=== PATIENT | female | born 1995 | race Caucasian/White ===

== ENCOUNTER 2017-08-01 17:39 | Emergency (ER) | payer SELFPAY ==
[~2017-08-01] VITALS: Ht 167.6 cm; Wt 112.6 kg
[~2017-08-01 17:39] MED LIST: ACET-66 PO; AMOX250C4 PO
[2017-08-01] MEDS ORDERED: KETOROLAC TROMETHAMINE 30 MG/ML VIAL IM ONE (19:30)
[2017-08-01 20:03] LABS: APPEARANCE,URINE CLEAR (CLEAR); GLUCOSE, URINE (UA) NEGATIVE (NEGATIVE); KETONES,URINE 15 mg/dL (NEGATIVE); LEUKOCYTE ESTERASE ,URINE NEGATIVE (NEGATIVE); OCCULT BLOOD,URINE NEGATIVE (NEGATIVE); PROTEIN,URINE POS 1+ (NEGATIVE)
[2017-08-01 20:05] VITALS: BP 122/72
[2017-08-01 20:07] LABS: ADD UA MICROSCOPIC YES
[2017-08-01 20:25] LABS: RBC,URINE 0-2 /HPF (0-2); SQUAMOUS EPITHELIAL CELL,UR Few /LPF (None Seen); WBC,URINE None Seen /HPF (0-5)
== END 2017-08-01 20:29 | disposition home or self-care (01) ==
LOC: EMS 17:40
DX: S39.012A Strain of muscle, fascia and tendon of lower back, initial encounter (principal); Z88.0 Allergy status to penicillin; X58.XXXA Exposure to other specified factors, initial encounter; Y93.89 Activity, other specified; Y92.89 Other specified places as the place of occurrence of the external cause; Y99.8 Other external cause status
CPT/HCPCS: 81001; 81025; 96372; 99283; J1885

== ENCOUNTER 2018-06-17 18:42 | Emergency (ER) | payer OTHER ==
[~2018-06-17] VITALS: Ht 170.2 cm; Wt 107.3 kg
[2018-06-17] MEDS ORDERED: METHOCARBAMOL 500 MG TABLET PO ONE (19:45)
[2018-06-17] MEDS ORDERED: IBUPROFEN 800 MG TABLET PO ONE (19:45)
[2018-06-17] MEDS ORDERED: PERTUSS(ACELL),DIPH,TET VAC/PF 0.5 ML VIAL IM ONE (19:45)
[2018-06-17 20:49] VITALS: BP 129/79
== END 2018-06-17 20:50 | disposition home or self-care (01) ==
LOC: EMS 18:42
DX: S80.812A Abrasion, left lower leg, initial encounter (principal); M25.511 Pain in right shoulder; R03.0 Elevated blood-pressure reading, without diagnosis of hypertension; Z88.0 Allergy status to penicillin; V49.50XA Passenger injured in collision with unspecified motor vehicles in traffic accident, initial encounter; Y93.89 Activity, other specified; Y92.89 Other specified places as the place of occurrence of the external cause; Y99.8 Other external cause status
CPT/HCPCS: 90471; 90715; 96372

== ENCOUNTER 2024-05-01 18:57 | Emergency (ER) | payer OTHER ==
[~2024-05-01] VITALS: Ht 170.2 cm; Wt 129.6 kg
[2024-05-01] MEDS: ACETAMINOPHEN 500 MG TABLET PO ONE (22:24)
[2024-05-01] MEDS: IBUPROFEN 600 MG TABLET PO ONE (22:24)
[2024-05-01 22:35] VITALS: BP 120/70; PULSE 76; RESP 16; TEMP 98.1; O2SAT 100
== END 2024-05-01 23:01 | disposition home or self-care (01) ==
LOC: EMS 18:59
DX: M23.92 Unspecified internal derangement of left knee (principal); Z88.0 Allergy status to penicillin; Z98.890 Other specified postprocedural states
CPT/HCPCS: 99283